=== PATIENT | male | born 1990 | race Caucasian/White ===

== ENCOUNTER 2018-05-22 11:37 | Emergency (ER) | payer OTHER ==
--- NOTE | 2018-05-22 12:35 | EDPHY ---
H & P Stated Complaint: L ear pain since last night--freq swimmers ear Source: Patient Exam Limitations: No limitations - Personal History Tetanus Vaccine Date: 2012 - Medical/Surgical History Hx Asthma: No Hx Chronic Respiratory Disease: No Hx Diabetes: No Hx Cardiac Disease: No Hx Renal Disease: No Hx Cirrhosis: No Hx Alcoholism: No Hx HIV/AIDS: No Hx Splenectomy or Spleen Trauma: No Other PMH: chest surgery as kid for chest deformity. - Social History Smoking Status: Never smoked Time Seen by Provider: 05/22/18 12:32 HPI/ROS: HPI: This is a 27-year-old male who presents with Chief Complaint: Left ear pain Location: Left ear pain Quality: Pain Duration: Since last night Signs and Symptoms: no fever, no nausea, no vomiting, no diarrhea, no urinary symptoms, no chest pain, no shortness of breath, no wheezing, no cough, no sore throat, no neck stiffness, no joint pain, no swollen glands, + left ear pain, no rash, + no ear discharge Timing: Acute Severity: Moderate Context: Patient presents with overnight history of left ear pain and irritation in the canal. He feels like this is similar presentation when he was diagnosed with swimmer's ear. He scuba dives and swims frequently. Denies fever, ear discharge, bleeding from the ear, headache, dizziness, tinnitus. He has tried no [id number] medications. He also notes that he has acting on the left christian for the last 4 days. He is going out of town for vacation and is requesting medications. Modifying Factors: None Comment: ROS: A comprehensive 10 system review of systems is otherwise negative aside from elements mentioned in the history of present illness. MEDICAL/SURGICAL/SOCIAL HISTORY: Medical history: Generally healthy. Does not take any regular medications. Surgical history: Chest surgery as a kid secondary to chest deformity Social history: Nonsmoker. Employed. Family history noncontributory. CONSTITUTIONAL: Nontoxic-appearing pleasant young adult white male, awake and alert, no obvious distress HEENT: Atraumatic and normocephalic, PERRL, EOMI. Nares patent; no rhinorrhea; no nasal mucosal edema. Tympanic membranes clear. Left external auditory canal shows whitish maceration with 15% occlusion. Oropharynx clear, no exudate and moist pink mucosa. Airway patent. No lymphadenopathy. No meningismus. Cardiovascular: Normal S1/S2, regular rate, regular rhythm, without murmur rub or gallop. PULMONARY/CHEST: Symmetrical and nontender. Clear to auscultation bilaterally. Good air movement. No accessory muscle usage. ABDOMEN: Soft, nondistended, nontender, no rebound, no guarding, no peritoneal signs, no masses or organomegaly. No CVAT. EXTREMITIES: 2/2 pulses, strength 5/5, no deformities, no clubbing, no cyanosis or edema. NEUROLOGICAL: no focal neuro deficits. GCS 15. SKIN: Warm and dry, 3 areas of acne vulgaris noted on left christian with minimal surrounding erythema. no erythema. no rash. Good capillary refill. (Micaela Garza) Constitutional: Initial Vital Signs Temperature (C) 37.0 C 05/22/18 11:50 Heart Rate 81 05/22/18 11:50 Respiratory Rate 16 05/22/18 11:50 Blood Pressure 148/85 H 05/22/18 11:50 O2 Sat (%) 97 05/22/18 11:50 O2 Delivery Mode Room Air Allergies/Adverse Reactions: No Known Allergies Allergy (Verified 05/22/18 11:50) Home Medications: Medication Instructions Recorded Ciprofloxacin/Dexamethasone 4 drops LEFTEAR BID 7 Days #1 05/22/18 [Ciprodex (RX)] bottle Doxycycline Hyclate 100 mg PO BID #14 tab 05/22/18 Medical Decision Making ED Course/Re-evaluation: The patient was evaluated and managed by the physician botany laboratory assistant. I have reviewed this chart and I agree with the findings and plan of care as documented , as indicated by my signature. I am the secondary supervising physician. ( Trina Dotson) Vital signs reviewed and show mildly elevated blood pressure. Patient has mild otitis externa with no TM perforation; prescription for Ciprodex given Regarding the acne patient was given prescription for doxycycline. No signs of facial cellulitis, abscess. This patient was seen under the supervision of my secondary supervising physician. I evaluated care for this patient independently. (Micaela Garza) Differential Diagnosis: Differential diagnosis includes but is not limited to coli a stoma, BPPV, otitis externa, otitis media, TM perforation. (Micaela Garza) Departure - Departure Disposition: Home, Routine, Self-Care Clinical Impression: Acne Qualifiers: Acne type: acne vulgaris Qualified Code(s): L70.0 - Acne vulgaris External otitis of left ear Qualifiers: Otitis externa type: swimmer's ear Chronicity: acute Qualified Code(s): H60.332 - Swimmer's ear, left ear Condition: Good Instructions: Ciprofloxacin (By mouth), Doxycycline (By mouth), Dexamethasone ( By mouth), Otitis Externa (ED) Additional Instructions: Please refrain from using Q-tips. Place cotton ball in to your left ear while taking a shower. Do not swim until all symptoms have resolved. I suggest that you wear a swimmer's cap while you swim. Referrals: Rashi Morales [Unknown] - As per Instructions Prescriptions: Ciprofloxacin/Dexamethasone [Ciprodex (RX)] 4 drops LEFTEAR BID 7 Days #1 bottle Doxycycline Hyclate 100 mg PO BID #14 tab
[2018-05-22 13:31] VITALS: BP 136/77
== END 2018-05-22 13:33 | disposition home or self-care (01) ==
DX: H60.332 Swimmer's ear, left ear (principal); L70.0 Acne vulgaris